=== PATIENT | female | born 1955 | race Caucasian/White ===

== ENCOUNTER 2017-08-12 08:28 | Emergency (ER) | payer BC, SELFPAY ==
[2017-08-12 08:34] VITALS: BP 164/85; PULSE 85; RESP 12; TEMP 36.4; O2SAT 95; BMI 37.7
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
--- NOTE | 2017-08-12 08:56 | ED.RN ---
PT C/O FEELING NAUSEATED. DR DO NOTIFIED
[2017-08-12 10:06] VITALS: BP 158/86; PULSE 74; RESP 15; O2SAT 96
== END 2017-08-12 10:07 | disposition home or self-care (01) ==
PROVIDERS: Emergency Provider Emergency Medicine
DX: S00.03XA Contusion of scalp, initial encounter (principal); S16.1XXA Strain of muscle, fascia and tendon at neck level, initial encounter; S29.012A Strain of muscle and tendon of back wall of thorax, initial encounter; R11.0 Nausea; R40.2410 Glasgow coma scale score 13-15, unspecified time; V89.2XXA Person injured in unspecified motor-vehicle accident, traffic, initial encounter; Y93.9 Activity, unspecified; Y92.9 Unspecified place or not applicable
CPT/HCPCS: 70450; 71250; 72125; 99283

== ENCOUNTER → 2019-11-08 10:00 | Outpatient (CLI) | payer OTHER, SELFPAY ==
[2019-11-08 11:24] LABS: Free T3 2.5 pg/mL (2.18-3.98); T4 Free Direct 1.14 ng/dL (0.76-1.46); Thyroid Stim Hormone (TSH) 1.23 uIU/mL (0.358-3.74)
== END ==
DX: E03.9 Hypothyroidism, unspecified (principal)
CPT/HCPCS: 36415; 84439; 84443; 84481

== ENCOUNTER → 2019-12-28 08:51 | Outpatient (CLI) | payer OTHER, SELFPAY ==
[2019-12-28 10:29] LABS: T4 Free Direct 0.99 ng/dL (0.76-1.46); Thyroid Stim Hormone (TSH) 0.26 uIU/mL (0.358-3.74)
== END ==
DX: E03.9 Hypothyroidism, unspecified (principal)
CPT/HCPCS: 36415; 84439; 84443; 84481

== ENCOUNTER → 2020-04-05 09:56 | Outpatient (CLI) | payer OTHER, SELFPAY ==
[2020-04-05 10:49] LABS: Erythrocyte Sedimentation Rate 19 mm/hr (0-30)
[2020-04-05 11:28] LABS: Free T3 3.1 pg/mL (2.18-3.98); T4 Free Direct 1.03 ng/dL (0.76-1.46); Thyroid Stim Hormone (TSH) 0.92 uIU/mL (0.358-3.74)
[2020-04-05 14:40] LABS: Vitamin D,25 Hydroxy 44.2 ng/mL
[2020-04-10 16:56] LABS: T3 Reverse 17.6 ng/dL (9.2-24.1); Thyroglobulin Antibody < 1.0 IU/mL (0.0-0.9); Thyroid Peroxidase AB 82 IU/mL (0-34)
== END ==
PROVIDERS: Visit Provider Nurse Practitioner Family
DX: E03.9 Hypothyroidism, unspecified (principal); R53.83 Other fatigue
CPT/HCPCS: 36415; 82306; 84439; 84443; 84481; 84482; 85652; 86140; 86376; 86800

== ENCOUNTER 2021-01-08 14:08 | Emergency (ER) | payer MEDICARE, SELFPAY ==
[2021-01-08 14:09] VITALS: BP 170/87; PULSE 82; RESP 18; TEMP 36.6; O2SAT 91; BMI 39.3
--- NOTE | 2021-01-08 14:34 | RAD_ITS ---
History: trauma: Left tibia fibula 2 views: Findings: No fracture or subluxation. No joint or soft tissue abnormality. IMPRESSION: Intact left tibia and fibula. at 1548 Reported and signed by: Agustín Smith MD Electronically Signed: Agustín Smith MD at 15:47 EDT Tel , Service support , RAD/Tibia & Fibula 2 Views
[2021-01-08] MEDS: Acetaminophen 500 MG Tablet 1000 MG PO (14:44)
--- NOTE | 2021-01-08 14:45 | EDS_ITS ---
HPI HPI - Fall History of Present Illness Chief Complaint: Fall Informant: patient Occured/Mechanism Occurred: Today Pain/Injury Pain Location: lower extremity Quality of Pain: Aching and Throbbing Current Severity: Mild Maximum Severity: Moderate Worsened by: Movement, palpation Narrative Narrative: Patient presents after a fall at home. She was in the bathroom and slipped on a wet floor. She states she fell so fast she stayed in sure how it happened. She complaining of pain through the mid to distal left thigh and knee. While sitting here in the emergency room she started having some pain in her left foot. She denies increased back pain but does report chronic back pain. She denies striking her head or loss of consciousness. [facility] Medical History Cervical cancer Cholecystectomy planned Evelyn's disease Home Medications levothyroxine [Tirosint-Juani] 75 mcg PO DAILY 01/08/21 [History Last Taken Unknown] liothyronine 5 mcg PO DAILY 01/08/21 [History Last Taken Unknown] Allergy/AdvReac Type Severity Reaction Status Date / Time NARCOTICS AdvReac Nausea Uncoded 01/08/21 14:12 Surgical History H/O: hysterectomy Hx of appendectomy Social History Smoking Status: Never smoker ROS ROS ED Constitutional Constitutional ED: Denies chills or fever(s) Eyes Eyes: Denies change in vision ENT ENT ED: Denies sore throat Cardiovascular Cardiovascular: Denies chest pain Respiratory/Chest Respiratory/Chest: Denies cough or dyspnea Gastrointestinal Gastrointestinal: Denies abdominal pain, diarrhea, nausea or vomiting Genitourinary Genitourinary ED: Denies dysuria Musculoskeletal Musculoskeletal: Reports arthralgias and back pain Integumentary Denies rash Neurologic Neurologic: Denies headache(s) or weakness Allergic/Immunologic Allergic/Immunologic ED: Denies urticaria EXAM Physical Exam Const Vital Signs: 01/08/21 14:09 01/08/21 14:32 01/08/21 16:00 Temperature 97.8 F Temperature Source Temporal Pulse Rate 82 Respiratory Rate 18 Respiratory Effort Normal Non-Labored Respiratory Depth Normal Respiratory Pattern Normal Blood Pressure 170/87 H 136/72 H Blood Pressure Mean 114 93 Pulse Ox 91 95 Oxygen Delivery Method Room Air Room Air Room Air Positive well nourished and well developed General Appearance ED: well developed HEENT Reports normocephalic and head/scalp atraumatic Eyes PERRL and EOMs intact bilaterally Neck supple Chest Wall inspection of chest normal and palpation of chest normal Resp normal respiratory effort and clear to auscultation bilaterally Cardio regular rate and regular rhythm GI normal to inspection, nondistended, normoactive bowel sounds Palpation: soft Extremity Extremity Narrative: Small abrasion to the anterior proximal left lower leg. Tenderness with palpation over the medial knee as well as over the distal half of the thigh. No tenderness at the hip. Mild tenderness over the metatarsals. Strong distal pulses with good cap refill. Normal sensation. Neuro oriented x3 and no sensory deficits noted Sensorium / Orientation: alert Psych mental status grossly normal Skin no rashes or lesions noted Trauma: abrasion MDM MDM MDM Narrative Medical decision making narrative: Due to patient's allergies she was given p.o. Tylenol. X-rays of the left femur, left tib-fib, left foot are obtained. Radiography Diagnostic Testing: Radiology Impression Tibia/Fibula X-Ray 01/08/21 14:34 Foot X-Ray 01/08/21 14:46 IMPRESSION: No acute abnormality. Prominent calcaneal enthesopathy. at 1550 Reported and signed by: Agustín Smith MD Electronically Signed: Agustín Smith MD at 15:49 EDT Tel , Service support , Femur X-Ray 01/08/21 15:10 Treatment and Re-Evaluation Comments:: X-rays reveal no evidence of acute fracture per my interpretation. Radiology interpretation is also reviewed. Patient did get up and ambulate with nursing staff. She had difficulty with using a walker but did have more success with using crutches. She will be discharged to home to follow-up with orthopedics as needed. Discharge Plan Triage Chief Complaint: Fall ED Provider: Fariba Goodrich Dx/Rx/DC Orders Clinical Impression: Sprain of left knee/leg Instructions: ED Contusion, Lower Extremity, ED Knee Sprain Prescriptions: No Action liothyronine 5 mcg Tablet 5 mcg PO DAILY RF: 0 Tirosint-Juani 75 mcg/mL Solution 75 mcg PO DAILY RF: 0 Primary Care Provider: Silvia Capone NP Referrals: Nabil Carlin MD [STAFF PHYSICIAN] - 1 Week if not improving Silvia Capone NP, [employer] [Primary Care Provider] - Disposition Disposition: Home, Self Care
--- NOTE | 2021-01-08 14:46 | RAD_ITS ---
[employer]Script[employer] Unformatted Report Format: Options: n 2f 2i act cap dr hernandez wm [facility] sl lj Gender: Female : 1955 Exam: XR Foot Min 3 Views Left Comparison: History: injury Contrast: Prominent dorsal and plantar calcaneal enthesopathy. RAD/Foot min 3 Views IMPRESSION: No acute abnormality. Prominent calcaneal enthesopathy. at 1550 Reported and signed by: Agustín Smith MD Electronically Signed: Agustín Smith MD at 15:49 EDT Tel , Service support ,
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
[2021-01-08 16:00] VITALS: BP 136/72; O2SAT 95
== END 2021-01-08 18:21 | disposition home or self-care (01) ==
PROVIDERS: Emergency Provider Emergency Medicine; PCP Nurse Practitioner Family
DX: S83.92XA Sprain of unspecified site of left knee, initial encounter (principal); W01.0XXA Fall on same level from slipping, tripping and stumbling without subsequent striking against object, initial encounter; Z79.899 Other long term (current) drug therapy
CPT/HCPCS: 73552; 73590; 73630; 99285

== ENCOUNTER → 2021-01-23 12:32 | Outpatient (CLI) | payer MEDICARE, SELFPAY ==
--- NOTE | 2021-01-23 13:13 | EKG12_ITS ---
Test Reason : PRE OP Blood Pressure : / mmHG Vent. Rate : 097 BPM Atrial Rate : 097 BPM P-R Int : 166 ms QRS Dur : 074 ms QT Int : 322 ms P-R-T Axes : 019 -05 066 degrees QTc Int : 408 ms Normal sinus rhythm Low voltage QRS (Limb Leads) Confirmed by MAYDA SIEGEL, SIXTO ([id number]), scientific publications editor HARSH RAO ([id number]) on 01/24/2021 7:05:11 AM Referred By: Nabil Carlin Confirmed By:SIXTO OHARA MD
[2021-01-23 14:36] LABS: Hematocrit 46.5 % (37-47); Hemoglobin 15.2 g/dL (12.0-15.0); Mean Corp Hgb Conc 32.7 g/dL (32-36); Mean Corpuscular Hgb 31.9 pg (27.0-32.0); Mean Corpuscular Volume 97.7 fL (81-99); Mean Platelet Vol. 10.6 fl (6.2-12.0); Platelet Count 322 K/mm3 (150-450); RBC Distribution Width CV 12.9 % (11.6-14.6); RBC Distribution Width SD 46.8 fl (35.1-43.9); Red Blood Count 4.76 M/mm3 (4.2-5.4)
[2021-01-23 15:09] LABS: Anion Gap 8 (5-15); BUN 20 mg/dL (7-18); BUN/Creat Ratio 23.2 RATIO (10-20); Calcium,Total 9.4 mg/dL (8.5-10.1); Chloride 108 mmol/L (98-107); Creatinine, Serum 0.86 mg/dL (0.55-1.02); EST Glomerular Filtration Rate 70 mL/min (>60); Est Glom Filt Rate - Afr Amer 85 mL/min (>60); Glucose 161 mg/dL (74-106); Potassium 4.2 mmol/L (3.5-5.1); Sodium Level 142 mmol/L (136-145)
== END ==
PROVIDERS: PCP Nurse Practitioner Family; Referring Provider Specialist; Visit Provider Specialist
DX: Z01.810 Encounter for preprocedural cardiovascular examination (principal)
CPT/HCPCS: 36415; 80048; 85027; 87635; 93005; C9803; U0005; U0003

== ENCOUNTER → 2021-11-05 | Outpatient (CLI) | payer MEDICARE, SELFPAY ==
[2021-11-05 10:32] LABS: Erythrocyte Sedimentation Rate 15 mm/hr (0-30)
[2021-11-05 10:55] LABS: CRP 4.67 mg/L (0.0-3.0)
[2021-11-05 11:00] LABS: Absolute Lymphocyte Count 3.35 X10^3/uL (0.83-4.51); Absolute Neutrophil Count 4.5 X10^3/uL (2.0-7.7); Basophil# 0.04 X10^3/uL; Basophil% 0.5 % (0-1); Eosinophil# 0.11 X10^3/uL; Eosinophils% 1.3 % (0-5); Hematocrit 45.3 % (37-47); Hemoglobin 15.5 g/dL (12.0-15.0); Lymphocyte # 3.35 X10^3/ul (0.83-4.51); Lymphocyte % 39.7 % (19-41); Mean Corp Hgb Conc 34.2 g/dL (32-36); Mean Corpuscular Hgb 32.2 pg (27.0-32.0); Mean Platelet Vol. 10.5 fl (6.2-12.0); Monocyte# 0.45 X10^3/uL; Monocyte% 5.3 % (0-10); NRBC Flagged by Analyzer 0 % (0-5); Neutrophil # 4.45 X10^3/uL (2.7-7.7); Neutrophil % 52.8 % (47-70); Platelet Count 311 K/mm3 (150-450); RBC Distribution Width SD 44.3 fl (35.1-43.9); Red Blood Count 4.82 M/mm3 (4.2-5.4); White Blood Count 8.4 K/mm3 (4.4-11.0)
== END | disposition home or self-care (01) ==
LOC: LAB 09:52
PROVIDERS: PCP Nurse Practitioner Family; Visit Provider Specialist
DX: M25.462 Effusion, left knee (principal)
CPT/HCPCS: 36415; 85025; 85652; 86140

== ENCOUNTER 2022-01-09 09:00 | Outpatient (CLI) | payer MEDICARE, SELFPAY ==
[2022-01-09 09:55] LABS: Hemoglobin 15.4 g/dL (12.0-15.0); Mean Corp Hgb Conc 32.8 g/dL (32-36); Mean Corpuscular Hgb 31.8 pg (27.0-32.0); Mean Corpuscular Volume 96.9 fL (81-99); Mean Platelet Vol. 10.9 fl (6.2-12.0); Platelet Count 294 K/mm3 (150-450); RBC Distribution Width CV 12.4 % (11.6-14.6); RBC Distribution Width SD 44.5 fl (35.1-43.9); Red Blood Count 4.85 M/mm3 (4.2-5.4); White Blood Count 7.4 K/mm3 (4.4-11.0)
[2022-01-09 10:22] LABS: ALB/GLOB Ratio 0.9 RATIO (0.9-2.4); AST(SGOT) 19 U/L (15-37); Alanine Aminotransfer ALT/SGPT 44 U/L (13-56); Albumin, Serum 3.7 g/dL (3.2-5.0); Alkaline Phosphatase 58 U/L (45-117); Anion Gap 8 (5-15); BUN 10 mg/dL (7-18); BUN/Creat Ratio 12.6 RATIO (10-20); Calcium,Total 9.3 mg/dL (8.5-10.1); Chloride 108 mmol/L (98-107); Cholesterol 241 mg/dL (200); EST Glomerular Filtration Rate 77 mL/min (>60); Est Glom Filt Rate - Afr Amer 93 mL/min (>60); Globulin 3.9 g/dL (2.2-4.2); Glucose 109 mg/dL (74-106); High Density Lipoprotein 45 mg/dL; Potassium 4.2 mmol/L (3.5-5.1); Protein, Total 7.6 g/dL (6.4-8.2); Sodium Level 142 mmol/L (136-145); Triglycerides 358 mg/dL; Very Low Density Lipoprotein 72 mg/dL (5-40)
== END 2022-01-09 23:59 | disposition home or self-care (01) ==
LOC: LAB 09:02
PROVIDERS: PCP Nurse Practitioner Family; Referring Provider Nurse Practitioner Family; Visit Provider Nurse Practitioner Family
DX: Z00.00 Encounter for general adult medical examination without abnormal findings (principal); E03.9 Hypothyroidism, unspecified
CPT/HCPCS: 36415; 80053; 80061; 85027

== ENCOUNTER → 2022-10-09 | Outpatient (CLI) | payer MEDICARE, SELFPAY ==
[2022-10-09 09:58] LABS: Absolute Lymphocyte Count 3.45 X10^3/uL (0.83-4.51); Absolute Neutrophil Count 3.4 X10^3/uL (2.0-7.7); Basophil# 0.04 X10^3/uL; Basophil% 0.5 % (0-1); Eosinophil# 0.11 X10^3/uL; Eosinophils% 1.5 % (0-5); Hematocrit 44.6 % (37-47); Hemoglobin 14.8 g/dL (12.0-15.0); Lymphocyte # 3.45 X10^3/ul (0.83-4.51); Lymphocyte % 46.4 % (19-41); Mean Corp Hgb Conc 33.2 g/dL (32-36); Mean Corpuscular Hgb 31.8 pg (27.0-32.0); Mean Corpuscular Volume 95.9 fL (81-99); Mean Platelet Vol. 10.2 fl (6.2-12.0); Monocyte# 0.39 X10^3/uL; Monocyte% 5.2 % (0-10); NRBC Flagged by Analyzer 0 % (0-5); Neutrophil # 3.44 X10^3/uL (2.7-7.7); Neutrophil % 46.3 % (47-70); Platelet Count 272 K/mm3 (150-450); RBC Distribution Width CV 12.9 % (11.6-14.6); RBC Distribution Width SD 46.2 fl (35.1-43.9); Red Blood Count 4.65 M/mm3 (4.2-5.4); White Blood Count 7.4 K/mm3 (4.4-11.0)
[2022-10-09 10:41] LABS: ALB/GLOB Ratio 0.9 RATIO (0.9-2.4); AST(SGOT) 16 U/L (15-37); Alanine Aminotransfer ALT/SGPT 28 U/L (13-56); Albumin, Serum 3.5 g/dL (3.2-5.0); Alkaline Phosphatase 69 U/L (45-117); Anion Gap 7 (5-15); BUN 16 mg/dL (7-18); Calcium,Total 8.9 mg/dL (8.5-10.1); Chloride 111 mmol/L (98-107); Cholesterol 256 mg/dL (200); Creatinine, Serum 0.67 mg/dL (0.55-1.02); EST Glomerular Filtration Rate 94 mL/min (>60); Est Glom Filt Rate - Afr Amer 113 mL/min (>60); Free T3 2.2 pg/mL (2.18-3.98); Globulin 3.8 g/dL (2.2-4.2); Glucose 110 mg/dL (74-106); High Density Lipoprotein 48 mg/dL; Potassium 3.9 mmol/L (3.5-5.1); Protein, Total 7.3 g/dL (6.4-8.2); Sodium Level 144 mmol/L (136-145); T4 Free Direct 0.96 ng/dL (0.76-1.46); Thyroid Stim Hormone (TSH) 2.03 uIU/mL (0.358-3.74); Triglycerides 271 mg/dL; Very Low Density Lipoprotein 54 mg/dL (5-40)
[2022-10-15 01:07] LABS: T3 Reverse 18.1 ng/dL (9.2-24.1); Thyroglobulin Antibody < 1.0 IU/mL (0.0-0.9); Thyroid Peroxidase AB 30 IU/mL (0-34)
== END | disposition home or self-care (01) ==
PROVIDERS: PCP Nurse Practitioner Family
DX: M25.579 Pain in unspecified ankle and joints of unspecified foot (principal); M54.9 Dorsalgia, unspecified; E66.9 Obesity, unspecified; M79.605 Pain in left leg; E07.9 Disorder of thyroid, unspecified; Z68.35 Body mass index [BMI] 35.0-35.9, adult; Z82.49 Family history of ischemic heart disease and other diseases of the circulatory system; Z80.1 Family history of malignant neoplasm of trachea, bronchus and lung; Z84.89 Family history of other specified conditions; Z83.3 Family history of diabetes mellitus; Z90.49 Acquired absence of other specified parts of digestive tract; Z87.898 Personal history of other specified conditions; Z98.890 Other specified postprocedural states; Z90.710 Acquired absence of both cervix and uterus; Z96.0 Presence of urogenital implants; Z76.89 Persons encountering health services in other specified circumstances; Z12.31 Encounter for screening mammogram for malignant neoplasm of breast
CPT/HCPCS: 36415; 80053; 80061; 84439; 84443; 84481; 84482; 85025; 86376; 86800

== ENCOUNTER → 2024-02-03 | Outpatient (CLI) | payer MEDICARE, SELFPAY ==
[2024-02-03 12:47] LABS: EST Glomerular Filtration Rate 76 mL/min (>60); Est Glom Filt Rate - Afr Amer 92 mL/min (>60)
== END | disposition home or self-care (01) ==
LOC: MTLAB 09:38
PROVIDERS: PCP Internal Medicine; Referring Provider Specialist; Visit Provider Specialist
DX: N28.9 Disorder of kidney and ureter, unspecified (principal)
CPT/HCPCS: 36415; 82565